=== PATIENT | female | born 1990 | race Caucasian/White ===

== ENCOUNTER 2017-02-06 21:08 | Emergency (ER) | payer MEDICAID ==
[~2017-02-06] VITALS: Ht 162.6 cm; Wt 123.5 kg
[2017-02-06] MEDS ORDERED: SODIUM CHLORIDE 0.9% 1,000 ML IV ONE (21:51)
[2017-02-06] MEDS ORDERED: ONDANSETRON ODT 4 MG PO ONE (22:00)
[2017-02-06] MEDS ORDERED: SODIUM CHLORIDE FLUSH 10ML SYR IVF ONE (22:00)
[2017-02-06 22:33] LABS: ASPARTATE AMINO TRANSFERASE 8 U/L (15-37); BLOOD UREA NITROGEN 6 mg/dL (7-18)
[2017-02-06] MEDS ORDERED: ONDANSETRON 2MG/ML, 2ML ONE (22:48)
[2017-02-06] MEDS ORDERED: ONDANSETRON 2MG/ML, 2ML IVPush ONE (23:00)
[2017-02-07 00:24] VITALS: BP 130/78
== END 2017-02-07 00:27 | disposition home or self-care (01) ==
LOC: ED 02-07 00:03
DX: N92.0 Excessive and frequent menstruation with regular cycle (principal)
CPT/HCPCS: 36415; 80053; 84703; 85025; 96361; 96374; 99284; J2405; J7030

== ENCOUNTER 2017-05-29 21:38 | Emergency (ER) | payer MEDICAID ==
[~2017-05-29] VITALS: Ht 167.6 cm; Wt 114.1 kg
[2017-05-30 00:14] VITALS: BP 117/57
== END 2017-05-30 00:40 | disposition home or self-care (01) ==
LOC: ED 23:59
DX: K64.8 Other hemorrhoids (principal); Z88.5 Allergy status to narcotic agent
CPT/HCPCS: 99283